=== PATIENT | female | born 1995 | race African-American/Black ===

== ENCOUNTER 2016-11-11 14:30 | Emergency (ER) | payer OTHER ==
[~2016-11-11] VITALS: Ht 162.6 cm; Wt 54.4 kg
[2016-11-11 14:38] VITALS: TEMP 36.6; Ht 162.6 cm; Wt 54.4 kg
[2016-11-11] MEDS ORDERED: DIPH25CA65 PO (15:04)
[2016-11-11] MEDS ORDERED: POLY1DRO19 OPB (15:04)
[2016-11-11] MEDS ORDERED: NAPR220T40 PO (15:04)
--- NOTE | 2016-11-11 15:11 | EMERGENCY ROOM VISIT NOTE ---
History First contact with patient: 14:45 Chief Complaint: EYE ASSESSMENT Stated Complaint: STRAINED EYE/PULSATING History of Present Illness The patient is a 21 year old female who presents to the Emergency Room with complaints of bilateral eye strain right greater than left. The patient states that 2 weeks ago it started when she was looking at her cell phone and it was too bright but since that time she has problems with her revision getting blurry if she is looking at a computer too long or standing for extended periods of time. The patient denies any headache or any other visual changes. She also states that her eyes feel like they're "pulsating". The patient denies any dizziness. She does not wear glasses. Review of Systems 6 system review was performed and was negative unless stated otherwise in history of present illness. Past Medical/Surgical History Medical Problems: (1) No Known Active Medical Problems Family History No pertinent family history Social History Smoking Status: Never Smoker Marital Status: single Housing Status: lives with friends Occupation Status: student Current/Historical Medications No Active Prescriptions or Reported Meds Allergies Coded Allergies: Aspirin (Verified Allergy, Mild, ., 11/30/14) Physical Exam Vital Signs Date Time Temp Pulse Resp B/P Pulse Ox O2 Delivery O2 Flow Rate FiO2 11/11/16 14:38 36.6 72 18 122/82 98 Room Air Right Eye Acuity: 20/20 Left Eye Acuity: 20/25 Physical Exam GENERAL: 21-year-old female appears in no acute distress. MENTAL Status: Alert and oriented 3. EYES: PERRLA. Visual acuity was 20/20 right eye and 20/25 left eye. EOMs intact. Funduscopic exam unremarkable. NEURO:Cranial nerves two through 12 intact. Cerebellar function intact with [id number]. Fine motor intact with alternating finger motions. Medical Decision & Procedures ED Course The patient was evaluated. The patient's left eye pressure was 18 and right thigh pressure was 18.5. The patient's case was discussed with Dr. Manning who agreed with treatment plan. The patient was discharged home in stable condition. Medical Decision Differential diagnosis include eye strain, glaucoma, retinal hemorrhage, Impression Primary Impression: Eye strain, bilateral Departure Information Dispostion Home / Self-Care Condition GOOD Prescriptions No Active Prescriptions or Reported Meds Referrals Irwin Brenner M.D. (PCP) Jorge Roberson MD Forms HOME CARE DOCUMENTATION FORM, IMPORTANT VISIT INFORMATION, WORK / SCHOOL INSTRUCTIONS Patient Instructions My [facility] [employer] Additional Instructions Avoid looking at her computer for extended periods of time. Call Dr. Garza as soon as possible for follow-up appointment.
[2016-11-11 15:23] VITALS: BP 118/74; PULSE 74; O2SAT 99
== END 2016-11-11 15:27 | disposition home or self-care (01) ==
LOC: C.EDB 14:31 → C.EDD 15:27
DX: H53.19 Other subjective visual disturbances (principal)

== ENCOUNTER 2017-05-16 13:27 | Emergency (ER) | payer OTHER ==
[~2017-05-16] VITALS: Ht 162.6 cm; Wt 52.3 kg
[~2017-05-16 13:27] MED LIST: DIPH25CA65 PO; NAPR220T40 PO; POLY1DRO19 OPB
[2017-05-16 13:36] VITALS: TEMP 37.1; Ht 162.6 cm; Wt 52.3 kg
[2017-05-16 15:15] VITALS: BP 108/77; PULSE 73; O2SAT 100
--- NOTE | 2017-05-16 22:09 | EMERGENCY ROOM VISIT NOTE ---
History Report prepared by Ford: Francie Wray Under the Supervision of: Dr. Ned Rivas M.D. First contact with patient: 14:30 Chief Complaint: GI ASSESSMENT Stated Complaint: BLOOD IN STOOL Nursing Triage Summary: patient walked in to traige eating a bag of doritos. RN asked patient to put doritos away and to not have anything else to eat or drink. patient states an hour ago when she pooped today "my poop was brown on the outside but fleshy raw meet on in the inside. when I wiped it was like stained purple." patient denies pain or discomfort at this time History of Present Illness The patient is a 22 year old female who presents to the Emergency Room with complaints of an episode of abnormal stool occurring an hour and a half ago. The patient states that her stool normal color but she thought there was some flesh colored material in the middle of it oozing out. When she wiped herself she noticed that the toilet paper was a purple color. The patient notes that she recently found a lump between her anus and vagina that she only notices after she defecates and when she wipes herself. She has been noticing this for several months. It is a painless lump.. She denies any pain with defecating today. She also denies any fever, vomiting, black stools, or diarrhea. The patient notes she has a sharp pain in her abdomen when she moves that started in February. It is not currently bothering her. Source of History: patient Onset: hour and a half ago Position: other (stool) Quality: other (discolored) Timing: other (episode) Associated Symptoms: + abdominal pain, No fevers, No vomiting, No diarrhea Review of Systems See HPI for pertinent positives & negatives. A total of 10 systems reviewed and were otherwise negative. Past Medical & Surgical Medical Problems: (1) No Known Active Medical Problems Family History No pertinent family history Social History Smoking Status: Never Smoker Marital Status: single Housing Status: lives with friends Occupation Status: student Current/Historical Medications Scheduled Diphenhydramine Hcl (Benadryl Allergy), 2 CAP PO PRN UD Naproxen Sodium (Aleve), 440 MG PO PRN UD Polyethylene Glycol-Propylene (Lubricant Eye Drops), 1 DROP OPB PRN Allergies Coded Allergies: Aspirin (Verified Allergy, Mild, ., 05/16/17) Physical Exam Vital Signs Date Time Temp Pulse Resp B/P (MAP) Pulse Ox O2 Delivery O2 Flow Rate FiO2 05/16/17 15:15 73 18 108/77 100 05/16/17 13:36 37.1 71 18 115/69 99 Room Air Physical Exam Constitutional: Vital signs reviewed. Eyes: Pupils are equal round reactive to light. Conjunctiva are noninjected. ENT: Pharynx is clear without erythema or exudate. Mucous membranes are moist. Neck supple without meningeal signs. Respiratory: Clear to auscultation bilaterally. Breath sounds are equal bilaterally. Cardiovascular: Regular rate and rhythm. No rubs or gallops. GI: Soft, nondistended and nontender. Bowel sounds are present. Rectal: No external hemorrhoid or fissures. Digital rectal guaiac negative brown stool with no blood, no masses palpable. Musculoskeletal: No peripheral edema. No lower extremity tenderness. Integumentary: No cyanosis. Neurological: The patient is awake and alert. No focal deficits. Psychiatric: Normal affect. Medical Decision & Procedures ED Course 1432: The patient was evaluated in room B8. A complete history and physical exam was performed. 1516: Upon reevaluation, the patient appeared to have improvement of her symptoms. I discussed tonight's findings with the patient. She verbalized agreement of the treatment plan. The patient was discharged home. Medical Decision This is a 22-year-old female presents with discoloration of her stool. Differential diagnosis includes rectal bleeding, fissure, hemorrhoid. I did perform a limited focused review of portions of the patient's old chart on the electronic medical record. The patient has had no recent pertinent visits to this hospital. I did evaluate patient as noted above. On examination she has no abdominal tenderness. Rectal examination shows no evidence of masses or hemorrhoids or bleeding. She is guaiac-negative. She did state her stool appeared purple in color. She states she had some food yesterday. It is unclear what she was seeing but she does not appear to have any rectal bleeding at this time. I did recommend she follow up with [facility]. She was discharged in good condition. Medication Reconcilliation Current Medication List: was personally reviewed by me Blood Pressure Screening Patient's blood pressure: Normal blood pressure Impression Primary Impression: Discoloration of stool Scribe Attestation The scribe's documentation has been prepared under my direct and personally reviewed by me in its entirety. I confirm that the note above accurately reflects all work, treatment, procedures, and medical decision making performed by me. Departure Information Dispostion Home / Self-Care Referrals No Doctor, Assigned (PCP) Forms HOME CARE DOCUMENTATION FORM, IMPORTANT VISIT INFORMATION Patient Instructions My [facility] Additional Instructions You have been examined and treated today on an emergency basis only. This is not a substitute for, or an effort to provide, complete comprehensive medical care. It is impossible to recognize and treat all injuries or illnesses in a single emergency department visit. It is therefore important that you follow up closely with [facility]. Call as soon as possible for an appointment. Return for worsening symptoms or if you develop vomiting, black or tarry stools or any other concerning symptoms.
== END 2017-05-16 15:16 | disposition home or self-care (01) ==
LOC: C.EDB 13:29
DX: R19.5 Other fecal abnormalities (principal)

== ENCOUNTER 2017-06-25 05:02 | Emergency (ER) | payer OTHER ==
[~2017-06-25] VITALS: Ht 162.6 cm; Wt 53.4 kg
[2017-06-25 05:05] VITALS: Ht 162.6 cm; Wt 53.4 kg
--- NOTE | 2017-06-25 05:23 | EMERGENCY ROOM VISIT NOTE ---
History First contact with patient: 05:08 Chief Complaint: DIARRHEA Stated Complaint: PERSISTENT DIARRHEA History of Present Illness The patient is a 22 year old female who presents to the Emergency Room with complaints of persistent diarrhea. The patient states that she has had diarrhea for the past 3 days since returning from [place]. She states that the diarrhea has been increasingly watery over the past 2 days. She does state that she ate some leftovers while in [place] which may have been sitting out. She had some bloating and gas pains initially, but states these have improved. She denies any abdominal pain, nausea/vomiting or blood in her stools. She denies any fevers/chills. Review of Systems A complete 10 point review of systems was reviewed with the patient with pertinent positives and negatives as per history of present illness. All else were negative. Past Medical/Surgical History Medical Problems: (1) No Known Active Medical Problems Family History No pertinent family history Social History Smoking Status: Never Smoker Marital Status: single Housing Status: lives with friends Occupation Status: student Current/Historical Medications Scheduled Diphenhydramine Hcl (Benadryl Allergy), 2 CAP PO PRN UD Naproxen Sodium (Aleve), 440 MG PO PRN UD Polyethylene Glycol-Propylene (Lubricant Eye Drops), 1 DROP OPB PRN Miscellaneous Medications [malaria vaccine], DOSE Physical Exam Vital Signs Date Time Temp Pulse Resp B/P (MAP) Pulse Ox O2 Delivery O2 Flow Rate FiO2 06/25/17 05:05 36.8 81 16 139/94 98 Room Air Physical Exam VITALS: Vitals are noted on the nurse's note and reviewed by myself. Vital signs stable. GENERAL: This is a 22-year-old female, in no acute distress, nondiaphoretic, well-developed well-nourished. MOUTH: Mucous membranes moist. HEART: Regular rate and rhythm without murmurs gallops or rubs. LUNGS: Clear to auscultation bilaterally without wheezes, rales or rhonchi. ABDOMEN: Positive bowel sounds x 4. Soft, nontender to palpation. NEURO: Patient was alert and oriented to person place and time. Medical Decision & Procedures Laboratory Results 06/25/17 05:25 Red Blood Count 4.24, Mean Corpuscular Volume 81.8, Mean Corpuscular Hemoglobin 27.1, Mean Corpuscular Hemoglobin Concent 33.1, Mean Platelet Volume 9.5, Neutrophils (%) (Auto) 59.1, Lymphocytes (%) (Auto) 29.4, Monocytes (%) (Auto) 8.6, Eosinophils (%) (Auto) 1.9, Basophils (%) (Auto) 0.5, Neutrophils # (Auto) 4.38, Lymphocytes # (Auto) 2.18, Monocytes # (Auto) 0.64, Eosinophils # (Auto) 0.14, Basophils # (Auto) 0.04 06/25/17 05:25 Test 06/25/17 05:25 White Blood Count 7.42 K/uL (4.8-10.8) Red Blood Count 4.24 M/uL (4.2-5.4) Hemoglobin 11.5 g/dL (12.0-16.0) Hematocrit 34.7 % (37-47) Mean Corpuscular Volume 81.8 fL (80-100) Mean Corpuscular Hemoglobin 27.1 pg (25-34) Mean Corpuscular Hemoglobin Concent 33.1 g/dl (32-36) Platelet Count 221 K/uL (130-400) Mean Platelet Volume 9.5 fL (7.4-10.4) Neutrophils (%) (Auto) 59.1 % Lymphocytes (%) (Auto) 29.4 % Monocytes (%) (Auto) 8.6 % Eosinophils (%) (Auto) 1.9 % Basophils (%) (Auto) 0.5 % Neutrophils # (Auto) 4.38 K/uL (1.4-6.5) Lymphocytes # (Auto) 2.18 K/uL (1.2-3.4) Monocytes # (Auto) 0.64 K/uL (0.11-0.59) Eosinophils # (Auto) 0.14 K/uL (0-0.5) Basophils # (Auto) 0.04 K/uL (0-0.2) RDW Standard Deviation 39.1 fL (36.4-46.3) RDW Coefficient of Variation 13.0 % (11.5-14.5) Immature Granulocyte % (Auto) 0.5 % Immature Granulocyte # (Auto) 0.04 K/uL (0.00-0.02) Anion Gap 4.0 mmol/L (3-11) Est Creatinine Clear Calc Drug Dose 103.9 ml/min Estimated GFR () 139.1 Estimated GFR (Non- 120.1 BUN/Creatinine Ratio 9.2 (10-20) Calcium Level 8.7 mg/dl (8.5-10.1) Medical Decision Differential diagnosis includes C. difficile diarrhea, infectious diarrhea, gastroenteritis, colitis, among others. The patient was evaluated as above. Normal exam with benign abdomen. Labs were unremarkable, with no leukocytosis. Patient was in the emergency department for greater than 2 hours and unable to have a bowel movement. She was given an order to have her stool tested as an outpatient. She may follow- up with [facility] services. She verbalized understanding of my assessment and treatment plan and was discharged home in good condition. Medication Reconcilliation Current Medication List: was personally reviewed by me Blood Pressure Screening Patient's blood pressure: Normal blood pressure Impression Primary Impression: Diarrhea Departure Information Dispostion Home / Self-Care Condition GOOD Referrals No Doctor, Assigned (PCP) Patient Instructions My [facility] Additional Instructions Bring a stool sample and the order to the lab to have the stool tested. Drink plenty of fluids. Follow up with [facility] as needed. Problem Qualifiers Primary Impression: Diarrhea Diarrhea type: unspecified type Qualified Codes: R19.7 - Diarrhea, unspecified
[2017-06-25] MEDS ORDERED: [UNRECOGNIZED DRUG - OTHER] (05:40)
[2017-06-25 05:45] LABS: BASO % 0.5 %; BASO ABS # 0.04 K/uL (0-0.2); COMPLETE YES; EOS % 1.9 %; HEMATOCRIT 34.7 % (37-47); IG% 0.5 %; LYMPH % 29.4 %; LYMPH ABS # 2.18 K/uL (1.2-3.4); MEAN CELL VOLUME 81.8 fL (80-100); MEAN CORPUSCULAR HEMOGLOBIN 27.1 pg (25-34); MEAN CORPUSCULAR HGB CONC 33.1 g/dl (32-36); MEAN PLATELET VOLUME 9.5 fL (7.4-10.4); MONO % 8.6 %; NEUT % 59.1 %; PLATELET COUNT 221 K/uL (130-400); RED BLOOD COUNT 4.24 M/uL (4.2-5.4); WHITE BLOOD COUNT 7.42 K/uL (4.8-10.8)
[2017-06-25 06:15] LABS: BUN/CREATININE RATIO 9.2 (10-20); CALCIUM 8.7 mg/dl (8.5-10.1); CREATININE 0.71 mg/dl (0.60-1.20); POTASSIUM 3.6 mmol/L (3.5-5.1)
[2017-06-25 07:23] VITALS: BP 128/82; PULSE 78; TEMP 36.8; O2SAT 98
== END 2017-06-25 07:26 | disposition home or self-care (01) ==
LOC: C.EDB 05:04 → C.EDA 07:26
DX: R19.7 Diarrhea, unspecified (principal)

== ENCOUNTER 2017-09-05 20:29 | Emergency (ER) | payer OTHER ==
[~2017-09-05] VITALS: Ht 162.6 cm; Wt 51.4 kg
[~2017-09-05 20:29] MED LIST changes: +[UNRECOGNIZED DRUG - OTHER]
[2017-09-05 20:32] VITALS: BP 116/81; PULSE 88; TEMP 36.6; O2SAT 98; Ht 162.6 cm; Wt 51.4 kg
[2017-09-05] MEDS ORDERED: PROPARACAINE HCL 0.5% OP SOLN 15 ML BTL OP STA (20:38)
[2017-09-05] MEDS ORDERED: CIPROFLOXACIN HCL 0.3% OP SOLN 2.5 ML BTL OP ONE (21:15)
--- NOTE | 2017-09-06 17:29 | EMERGENCY ROOM VISIT NOTE ---
ED Visit Note First contact with patient: 20:38 CHIEF COMPLAINT: Foreign body of the eye HISTORY OF PRESENT ILLNESS: This 22-year-old female patient presents to the emergency department complaining of pain and foreign body sensation in the left eye. 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 She does not have decreased vision of the eye, but does see a white foreign body over the colored portion of the eye. She tried to flush this at work but was not successful. There has been a constant moderate pain and irritation, redness and tearing in the eye. The patient does no wear contacts. The patient rates the pain as 7/10. The patient has not had previous injuries to this eye. Tetanus shot is up to date. REVIEW OF SYSTEMS: A 6 system review of systems was completed with positives and pertinent negatives listed in the HPI. ALLERGIES: Aspirin MEDICATIONS: See EMR PMH: No pertinent chronic medical disease SOCIAL HISTORY: Lives locally PHYSICAL EXAM: Vital Signs: Reviewed Nurse's notes, vital signs stable. Visual acuity intact to fingers at 10 feet. GENERAL: This is a white female, in no acute distress, but who is uncomfortable from the eye problem. Well-developed well-nourished. EYES: The pupils are equal round and reactive to light and accommodation. EOMs are full and without tenderness. There is clear discharge from the left eye which is injected. There is a white foreign body visible on the cornea. There is no foreign body visible under the eyelid after lid eversion. The foreign body was seen embedded in the cornea under slit lamp exam. The cornea was clear and no hyphema was seen. Fluorescein uptake was observed with ultraviolet light significant for a corneal abrasion only around the previous location of the foreign body. EMERGENCY DEPARTMENT COURSE: I examined the patient. Alcaine 2 drops were placed in the patient's left eye. A slit lamp exam was performed as above. Verbal consent was obtained to perform the procedure. The white foreign body was removed using a cotton swab. Ciloxan two drops was placed in the patient's left eye. The patient was discharged home in good condition with instructions as below. Current/Historical Medications Scheduled Diphenhydramine Hcl (Benadryl Allergy), 2 CAP PO PRN UD Naproxen Sodium (Aleve), 440 MG PO PRN UD Polyethylene Glycol-Propylene (Lubricant Eye Drops), 1 DROP OPB PRN Miscellaneous Medications [malaria vaccine], DOSE Allergies Coded Allergies: Aspirin (Verified Allergy, Mild, ., 06/25/17) Vital Signs Date Time Temp Pulse Resp B/P (MAP) Pulse Ox O2 Delivery O2 Flow Rate FiO2 09/05/17 20:32 36.6 88 18 116/81 98 Room Air Medications Administered Medications (Trade) Dose Ordered Sig/Dara Route Start Time Stop Time Status Last Admin Dose Admin Ciprofloxacin HCl (Ciprofloxacin 0.3% Op Soln) 2 drops NOW ONCE OP 09/05/17 21:15 09/05/17 21:16 DC 09/05/17 21:15 2 DROPS Departure Information Impression Primary Impression: Foreign body in eye Dispostion Home / Self-Care Condition GOOD Forms HOME CARE DOCUMENTATION FORM, IMPORTANT VISIT INFORMATION Patient Instructions My [facility] Additional Instructions You were seen and evaluated today on an emergency basis only. This is not a substitute for, or an effort to provide, complete comprehensive medical care. It is not possible to recognize and treat all injuries or illnesses in a single emergency department visit. For this reason it is recommended that you followup with your primary care physician this week for recheck. Use Ciloxan Eye Drops: Instill 1-2 drops into the conjunctival sac every 2 hours while awake for 2 days and 1-2 drops every 4 hours while awake for the next 5 days You are welcome to return to the emergency department anytime with new, worsening, or concerning symptoms.
== END 2017-09-05 21:31 | disposition home or self-care (01) ==
LOC: C.EDB 20:30 → C.EDD 21:31
DX: T15.02XA Foreign body in cornea, left eye, initial encounter (principal); X58.XXXA Exposure to other specified factors, initial encounter; Y93.E5 Activity, floor mopping and cleaning; Y99.0 Civilian activity done for income or pay; Y92.89 Other specified places as the place of occurrence of the external cause; Z88.6 Allergy status to analgesic agent